=== PATIENT | male | born 1975 | race Hispanic/Latino ===

== ENCOUNTER 2024-04-24 20:59 | Emergency (ER) | payer SELFPAY ==
[~2024-04-24] VITALS: Ht 165.1 cm; Wt 72.6 kg
[2024-04-24 20:59] VITALS: TEMP 98.9
[2024-04-24 21:19] LABS: BASOPHILS # (AUTO) 0.1 (0.0-0.1); BASOPHILS % 0.4 % (0.0-1.0); EOSINOPHILS # (AUTO) 0.2 (0.0-0.4); EOSINOPHILS % 1.6 % (0.0-6.0); HEMATOCRIT 48.5 % (38.2-49.6); HEMOGLOBIN 15.7 g/dL (14.0-18.0); LYMPHOCYTES # (AUTO) 2.2 (1.0-3.2); MEAN CORPUSCULAR HEMOGLOBIN 28.2 pg (28-32); MEAN CORPUSCULAR HGB CONC 32.4 g/dL (31-35); MEAN CORPUSCULAR VOLUME 87.1 fL (81-99); MONOCYTES # (AUTO) 1.2 (0.2-0.8); MONOCYTES % 10.4 % (4.4-11.3); NEUTROPHILS # (AUTO) 7.9 (2.1-6.9); NEUTROPHILS % 68.3 % (38.7-80.0); PLATELET COUNT 277 x10e3/uL (140-360); RED BLOOD COUNT 5.57 x10e6/uL (4.3-5.7); RED CELL DISTRIBUTION WIDTH 14.6 % (11.7-14.4); WHITE BLOOD COUNT 11.61 x10e3/uL (4.8-10.8)
[2024-04-24 21:40] LABS: ALBUMIN 3.7 g/dL (3.5-5.0); ALBUMIN/GLOBULIN RATIO 0.9 (0.8-2.0); ANION GAP 17.2 mmol/L (8-16); BILIRUBIN,TOTAL 0.6 mg/dL (0.2-1.2); CALCIUM 9.1 mg/dL (8.4-10.2); CREATININE, SERUM 0.91 mg/dL (0.72-1.25); TOTAL PROTEIN 7.9 g/dL (6.5-8.1)
[2024-04-24 21:46] LABS: POTASSIUM 3.2 mmol/L (3.5-5.1); TROPONIN I 0.003 ng/mL (0-0.300)
[2024-04-24] MEDS ORDERED: Morphine 4mg INJECTION 4 MG/ML INJ IV STA (22:40)
[2024-04-24] MEDS: KETOROLAC TROMETHAMINE 30 MG/ML VIAL IV STA (23:38)
[2024-04-25 00:17] VITALS: PULSE 81; RESP 17
[2024-04-25 00:41] LABS: CREATINE KINASE 166 IU/L (30-200)
[2024-04-25 00:48] LABS: TROPONIN I < 0.001 ng/mL (0-0.300)
[2024-04-25 00:59] VITALS: BP 146/98; PULSE 85; RESP 16; O2SAT 98
== END 2024-04-25 01:02 | disposition home or self-care (01) ==
LOC: ER 21:05
DX: R06.02 Shortness of breath (principal); R07.89 Other chest pain; Z11.52 Encounter for screening for COVID-19
CPT/HCPCS: 36415; 71045; 80053; 82550; 83690; 83880; 84484; 85025; 93005; 99284; J1885; U0002